=== PATIENT | female | born 1960 | race Caucasian/White ===

== ENCOUNTER 2020-07-16 07:47 | Day surgery (SDC) | payer BC ==
[~2020-07-16] VITALS: Ht 165.1 cm; Wt 102.0 kg
[~2020-07-16 07:47] MED LIST: Amaryl1 MG PO; LOSARTAN-HCTZ1 EAC6 PO; METF500C PO; OMEP20ER PO; PRENATE CHEWABLE1 MG PO; Pravastatin Sod40 MG PO; TOPROL XL25 MG PO; ZYRTEC10 M2 PO
== END 2020-07-16 09:45 | disposition home or self-care (01) ==
LOC: ORSCSDS 07:47
PROVIDERS: Internal Medicine Gastroenterology
PROC: 0DBM8ZX Excision of Descending Colon, Via Natural or Artificial Opening Endoscopic, Diagnostic (ICD-10-PCS; principal; 2020-07-16 09:15)
PROC: 0DBH8ZX Excision of Cecum, Via Natural or Artificial Opening Endoscopic, Diagnostic (ICD-10-PCS; principal; 2020-07-16 09:15)
PROC: 0DBN8ZX Excision of Sigmoid Colon, Via Natural or Artificial Opening Endoscopic, Diagnostic (ICD-10-PCS; principal; 2020-07-16 09:15)
DX: Z12.11 Encounter for screening for malignant neoplasm of colon (principal); D12.0 Benign neoplasm of cecum; D12.4 Benign neoplasm of descending colon; D37.4 Neoplasm of uncertain behavior of colon; K57.30 Diverticulosis of large intestine without perforation or abscess without bleeding; K64.8 Other hemorrhoids; Z86.010 Personal history of colon polyps; Z98.84 Bariatric surgery status; G47.33 Obstructive sleep apnea (adult) (pediatric); E11.9 Type 2 diabetes mellitus without complications; E78.5 Hyperlipidemia, unspecified; I10 Essential (primary) hypertension; Z79.84 Long term (current) use of oral hypoglycemic drugs; Z79.899 Other long term (current) drug therapy
CPT/HCPCS: 82947; 88305; J2704; J7120

== ENCOUNTER 2021-12-11 06:08 | Day surgery (SDC) | payer BC ==
[~2021-12-11] VITALS: Ht 165.1 cm; Wt 101.0 kg
--- NOTE | 2021-12-11 09:56 | NUR ---
2cc of air removed from tr band. site soft and non-tender. no bleeding noted.
--- NOTE | 2021-12-11 10:16 | NUR ---
2cc removed from tr band. site soft and non-tender. no bleeding noted.
--- NOTE | 2021-12-11 10:29 | NUR ---
3 cc removed from tr band. site soft and non-tender. no bleeding noted.
--- NOTE | 2021-12-11 10:36 | NUR ---
tr band fully deflaited. no bleeding noted. site soft and non-tender.
--- NOTE | 2021-12-11 11:23 | NUR ---
pt given dc instructions and verbalized understanding. iv out. tr band removed. cloth dot blaced. sling apllied. pt takne to [facility] via [facility]. waiting parking lot to take pt home.
== END 2021-12-11 11:15 | disposition home or self-care (01) ==
LOC: MHTC 06:08
DX: I25.10 Atherosclerotic heart disease of native coronary artery without angina pectoris (principal); E78.5 Hyperlipidemia, unspecified; I10 Essential (primary) hypertension; E11.9 Type 2 diabetes mellitus without complications; G47.30 Sleep apnea, unspecified; E66.9 Obesity, unspecified; I49.3 Ventricular premature depolarization; Z79.84 Long term (current) use of oral hypoglycemic drugs; Z68.37 Body mass index [BMI] 37.0-37.9, adult; Z88.4 Allergy status to anesthetic agent
CPT/HCPCS: 76937; 85347; 93454; 93571; 99152; 99153; C1769; C1887; C1894; J1644; J2250; J3010; J7030; J7040; Q9967

== ENCOUNTER → 2023-06-15 | Outpatient (CLI) | payer OTHER | END | disposition home or self-care (01) | LOC: LAB SHORT 06:09 → LAB 06:09 → LAB FUT 05-30 14:45 | DX: D50.9 Iron deficiency anemia, unspecified (principal) | CPT/HCPCS: 87338 ==